=== PATIENT | female | born 1940 | race Caucasian/White ===

== ENCOUNTER 2022-01-30 07:59 | Emergency (ER) | payer OTHER ==
[~2022-01-30] VITALS: Ht 152.4 cm; Wt 53.5 kg
--- NOTE | 2022-01-30 08:30 | NUR ---
TISH Whitman from Home "noticed bright red blood in diapers-completely soiled and also abdominal pain. On room air, breathing evenly and unlabored. Kept comfortable, will continue to monitor accordingly.
[2022-01-30] MEDS ORDERED: PANTOPRAZOLE 40 MG VIAL ONE (08:38)
[2022-01-30 08:52] LABS: OCCULT BLOOD STOOL POSITIVE (NEGATIVE)
[2022-01-30] MEDS ORDERED: PANTOPRAZOLE 40 MG VIAL IV ONE (09:00)
[2022-01-30 09:28] LABS: BASOPHILS % (AUTO) 0.2 % (0.0-2.0); EOSINOPHILS % (AUTO) 0.6 % (0.0-6.0); HEMATOCRIT 30 % (33-45); HEMOGLOBIN 10.2 g/dL (11.5-14.8); LYMPHOCYTES # (AUTO) 0.6 K/uL (0.8-4.8); MEAN CORPUSCULAR HGB CONC 34 g/dl (31.0-36.0); MEAN CORPUSCULAR VOLUME 95 fL (82-100); MONOCYTES # (AUTO) 0.4 K/uL (0.1-1.30); MONOCYTES % (AUTO) 5.1 % (2.0-12.0); NEUTROPHILS # (AUTO) 6.2 K/uL (1.8-8.9); NEUTROPHILS % (AUTO) 86.1 % (43.0-81.0); PLATELET COUNT (AUTO) 168 K/uL (150-450); RED BLOOD CELL COUNT(AUTO) 3.14 MIL/uL (4.0-5.2); WHITE BLOOD COUNT (AUTO) 7.2 K/uL (4.3-11.0)
[2022-01-30 09:58] LABS: ALANINE AMINOTRANSFERASE 18 U/L (12-78); ALBUMIN 3.8 g/dL (3.4-5.0); ALKALINE PHOSPHATASE 56 U/L (46-116); ASPARTATE AMINOTRANSFERASE 16 U/L (15-37); BILIRUBIN,DIRECT 0.1 mg/dL (0.0-0.2); BILIRUBIN,TOTAL 0.5 mg/dL (0.2-1.0); CARBON DIOXIDE 26 mmol/L (21-32); CHLORIDE 107 mmol/L (98-107); CREATININE 1.4 mg/dL (0.6-1.3); GLUCOSE 104 mg/dL (74-106); POTASSIUM 3.7 mmol/L (3.5-5.1); SODIUM SERUM 142 mmol/L (136-145); TOTAL PROTEIN, SERUM 6.8 g/dL (6.4-8.2); UREA NITROGEN, BLOOD 35 mg/dL (7-18)
[2022-01-30] MEDS ORDERED: ONDA4TAB5 PO ×2 (10:14→10:20)
[2022-01-30] MEDS ORDERED: AMOX-430 PO ×2 (10:14→10:20)
[2022-01-30 10:34] VITALS: BP 140/77
--- NOTE | 2022-01-30 10:35 | NUR ---
Patient discharged to home in stable condition. Written and verbal after care instructions given. Patient grand daughter verbalizes understanding of instruction.IV removed. Catheter intact and site benign. Pressure and 4x4 applied to site. No bleeding noted.
== END 2022-01-30 10:35 | disposition home or self-care (01) ==
LOC: ER 08:09
DX: K62.5 Hemorrhage of anus and rectum (principal); K52.9 Noninfective gastroenteritis and colitis, unspecified; K57.31 Diverticulosis of large intestine without perforation or abscess with bleeding; I10 Essential (primary) hypertension; K21.9 Gastro-esophageal reflux disease without esophagitis
CPT/HCPCS: 99284; 74176; 96374; 85025; 80048; 80076; 82272; 36415; 85730; 86850; C9113